=== PATIENT | male | born 1965 | race Caucasian/White ===

== ENCOUNTER 2017-08-01 09:02 | Emergency (ER) | payer OTHER ==
[2017-08-01 10:08] LABS: ADD MAN DIFF? NO
[2017-08-01 10:09] LABS: BASOPHILS % 0.2 % (0.0-2.0); EOSINOPHILS % 0.3 % (0.0-7.0); HEMATOCRIT 47.2 % (42.0-52.0); HEMOGLOBIN 16.9 g/dl (14.0-18.0); LYMPHOCYTES # 1.6 10^3/ul (0.8-2.9); LYMPHOCYTES % 14.4 % (15.0-51.0); MEAN CORPUSCULAR HEMOGLOBIN 31.6 pg (29.0-33.0); MEAN CORPUSCULAR HGB CONC 35.8 g/dl (32.0-37.0); MEAN CORPUSCULAR VOLUME 88.4 fl (82.0-101.0); MEAN PLATELET VOLUME 8.6 fl (7.4-10.4); MONOCYTE # 0.7 10^3/ul (0.3-0.9); MONOCYTES % 6.1 % (0.0-11.0); NEUTROPHIL # 8.9 10^3/ul (1.6-7.5); NEUTROPHILS % 78.6 % (39.0-77.0); PLATELET COUNT 323 10^3/UL (140-415); RED BLOOD COUNT 5.34 10^6/ul (4.70-6.10); RED CELL DISTRIBUTION WIDTH 11.6 % (11.5-14.5)
[2017-08-01 10:09] LABS: WHITE BLOOD COUNT 11.3 10^3/ul (4.8-10.8)
[2017-08-01 10:26] LABS: ANION GAP 21 (8-16); BLOOD UREA NITROGEN 18 mg/dl (7-20); CALCIUM 9.9 mg/dl (8.4-10.2); CARBON DIOXIDE 22 mmol/L (21-31); CHLORIDE 98 mmol/L (97-110); CREATININE 0.95 mg/dl (0.61-1.24); GLUCOSE 140 mg/dl (70-220); POTASSIUM 3.6 mmol/L (3.5-5.1); SODIUM 137 mmol/L (135-144)
[2017-08-01 10:41] LABS: TROPONIN-I < 0.012 ng/ml (0.00-0.12)
== END 2017-08-01 11:13 | disposition home or self-care (01) ==
LOC: FTE 09:02
DX: I10 Essential (primary) hypertension (principal)
CPT/HCPCS: 36415; 71045; 80048; 84484; 85025; 93005; 99285-25

== ENCOUNTER 2017-12-14 14:42 | Emergency (ER) | payer OTHER ==
[2017-12-14] MEDS: LORAZEPAM 2 MG INJ IV (15:01)
[2017-12-14 15:09] LABS: ADD MAN DIFF? NO
[2017-12-14 15:10] LABS: BASOPHILS % 0.1 % (0.0-2.0); EOSINOPHILS % 0.6 % (0.0-7.0); HEMATOCRIT 42.4 % (42.0-52.0); HEMOGLOBIN 15.2 g/dl (14.0-18.0); LYMPHOCYTES # 1.6 10^3/ul (0.8-2.9); LYMPHOCYTES % 23.3 % (15.0-51.0); MEAN CORPUSCULAR HEMOGLOBIN 32.2 pg (29.0-33.0); MEAN CORPUSCULAR HGB CONC 35.8 g/dl (32.0-37.0); MEAN CORPUSCULAR VOLUME 89.8 fl (82.0-101.0); MEAN PLATELET VOLUME 9.1 fl (7.4-10.4); MONOCYTE # 0.7 10^3/ul (0.3-0.9); MONOCYTES % 10.3 % (0.0-11.0); NEUTROPHIL # 4.5 10^3/ul (1.6-7.5); NEUTROPHILS % 65.3 % (39.0-77.0); PLATELET COUNT 260 10^3/UL (140-415); RED BLOOD COUNT 4.72 10^6/ul (4.70-6.10); RED CELL DISTRIBUTION WIDTH 11.6 % (11.5-14.5)
[2017-12-14 15:10] LABS: WHITE BLOOD COUNT 6.9 10^3/ul (4.8-10.8)
[2017-12-14 15:39] LABS: ANION GAP 15 (8-16); BLOOD UREA NITROGEN 23 mg/dl (7-20); CALCIUM 9.1 mg/dl (8.4-10.2); CARBON DIOXIDE 20 mmol/L (21-31); CHLORIDE 105 mmol/L (97-110); CREATININE 0.82 mg/dl (0.61-1.24); GLUCOSE 219 mg/dl (70-220); PHENYTOIN (DILANTIN) 10.3 ug/ml (10.0-20.0); POTASSIUM 3.9 mmol/L (3.5-5.1); SODIUM 136 mmol/L (135-144)
== END 2017-12-14 18:03 | disposition home or self-care (01) ==
LOC: E/R 14:42
DX: R56.9 Unspecified convulsions (principal); R40.2142 Coma scale, eyes open, spontaneous, at arrival to emergency department; R40.2252 Coma scale, best verbal response, oriented, at arrival to emergency department; R40.2362 Coma scale, best motor response, obeys commands, at arrival to emergency department; I10 Essential (primary) hypertension
CPT/HCPCS: 36415; 80048; 80185; 82962; 85025; 96374; 99284-25

== ENCOUNTER 2018-02-07 19:37 | Emergency (ER) | payer OTHER ==
[2018-02-07] MEDS ORDERED: LORAZEPAM 2 MG INJ (19:44)
[2018-02-07] MEDS ORDERED: HALOPERIDOL 5 MG INJ (19:44)
[2018-02-07 19:52] LABS: ADD MAN DIFF? NO
[2018-02-07 19:53] LABS: WHITE BLOOD COUNT 10.5 10^3/ul (4.8-10.8)
[2018-02-07 19:53] LABS: BASOPHILS % 0.3 % (0.0-2.0); EOSINOPHILS # 0.1 10^3/ul (0.0-0.5); EOSINOPHILS % 0.5 % (0.0-7.0); HEMOGLOBIN 14.5 g/dl (14.0-18.0); LYMPHOCYTES # 3.2 10^3/ul (0.8-2.9); LYMPHOCYTES % 30.2 % (15.0-51.0); MEAN CORPUSCULAR HEMOGLOBIN 31.9 pg (29.0-33.0); MEAN CORPUSCULAR HGB CONC 35.4 g/dl (32.0-37.0); MEAN CORPUSCULAR VOLUME 90.1 fl (82.0-101.0); MEAN PLATELET VOLUME 8.6 fl (7.4-10.4); MONOCYTE # 0.7 10^3/ul (0.3-0.9); MONOCYTES % 6.7 % (0.0-11.0); NEUTROPHIL # 6.5 10^3/ul (1.6-7.5); NEUTROPHILS % 61.7 % (39.0-77.0); PLATELET COUNT 309 10^3/UL (140-415); RED BLOOD COUNT 4.55 10^6/ul (4.70-6.10); RED CELL DISTRIBUTION WIDTH 11.5 % (11.5-14.5)
[2018-02-07] MEDS: LORAZEPAM 2 MG INJ IV (19:55)
[2018-02-07] MEDS: HALOPERIDOL 5 MG INJ IM (19:55)
[2018-02-07 20:17] LABS: ANION GAP 25 (8-16); BLOOD UREA NITROGEN 14 mg/dl (7-20); CALCIUM 9.4 mg/dl (8.4-10.2); CARBON DIOXIDE 18 mmol/L (21-31); CHLORIDE 95 mmol/L (97-110); CREATININE 0.92 mg/dl (0.61-1.24); GLUCOSE 191 mg/dl (70-220); POTASSIUM 3.6 mmol/L (3.5-5.1); SODIUM 134 mmol/L (135-144)
[2018-02-07] MEDS ORDERED: FOSPHENYTOIN 100 MG PE/2ML INJ IV (21:00)
[2018-02-07] MEDS: SOD CHLORIDE 0.9% IVPB (21:30)
[2018-02-07] MEDS: FOSPHENYTOIN IVPB (21:30)
== END 2018-02-08 08:30 | disposition home or self-care (01) ==
LOC: E/R 02-08 08:30
DX: R56.9 Unspecified convulsions (principal); R40.2142 Coma scale, eyes open, spontaneous, at arrival to emergency department; R40.2352 Coma scale, best motor response, localizes pain, at arrival to emergency department; R40.2242 Coma scale, best verbal response, confused conversation, at arrival to emergency department; I10 Essential (primary) hypertension
CPT/HCPCS: 36415; 70450; 80048; 80185; 82962; 85025; 96372; 96374; 96375; 99285-25

== ENCOUNTER 2018-04-12 11:26 | Emergency (ER) | payer OTHER ==
[2018-04-12] MEDS: LORAZEPAM 2 MG INJ IV (11:50)
[2018-04-12] MEDS: SOD CHLORIDE 0.9% 500 ML IV (11:55)
[2018-04-12 12:02] LABS: ADD MAN DIFF? NO
[2018-04-12 12:10] LABS: BASOPHILS % 0.3 % (0.0-2.0); EOSINOPHILS % 0.4 % (0.0-7.0); HEMATOCRIT 43.7 % (42.0-52.0); HEMOGLOBIN 15.7 g/dl (14.0-18.0); LYMPHOCYTES # 1.8 10^3/ul (0.8-2.9); LYMPHOCYTES % 19.7 % (15.0-51.0); MEAN CORPUSCULAR HGB CONC 35.9 g/dl (32.0-37.0); MEAN CORPUSCULAR VOLUME 89.2 fl (82.0-101.0); MEAN PLATELET VOLUME 8.9 fl (7.4-10.4); MONOCYTE # 0.7 10^3/ul (0.3-0.9); MONOCYTES % 7.1 % (0.0-11.0); NEUTROPHIL # 6.8 10^3/ul (1.6-7.5); NEUTROPHILS % 72.2 % (39.0-77.0); PLATELET COUNT 335 10^3/UL (140-415); RED CELL DISTRIBUTION WIDTH 11.6 % (11.5-14.5)
[2018-04-12 12:10] LABS: WHITE BLOOD COUNT 9.4 10^3/ul (4.8-10.8)
[2018-04-12 12:22] LABS: ANION GAP 15 (5-13); BLOOD UREA NITROGEN 20 mg/dl (7-20); CALCIUM 10.2 mg/dl (8.4-10.2); CARBON DIOXIDE 19 mmol/L (21-31); CHLORIDE 101 mmol/L (97-110); CREATININE 0.77 mg/dl (0.61-1.24); Estimated GFR > 60 mL/min (>60); GLUCOSE 193 mg/dl (70-220); SODIUM 135 mmol/L (135-144)
== END 2018-04-12 16:20 | disposition home or self-care (01) ==
LOC: E/R 11:26
DX: G40.909 Epilepsy, unspecified, not intractable, without status epilepticus (principal); R40.2142 Coma scale, eyes open, spontaneous, at arrival to emergency department; R40.2362 Coma scale, best motor response, obeys commands, at arrival to emergency department; R40.2252 Coma scale, best verbal response, oriented, at arrival to emergency department; I10 Essential (primary) hypertension; Z95.0 Presence of cardiac pacemaker
CPT/HCPCS: 36415; 80048; 85025; 93005; 96361; 96374; 99284-25

== ENCOUNTER 2018-06-12 09:21 | Emergency (ER) | payer OTHER ==
[2018-06-12] MEDS: SOD CHLORIDE 0.9% 1,000 ML IV (10:10)
[2018-06-12] MEDS: LORAZEPAM 2 MG INJ IV (10:10)
[2018-06-12 10:17] LABS: ADD MAN DIFF? NO
[2018-06-12 10:21] LABS: WHITE BLOOD COUNT 10.4 10^3/ul (4.8-10.8)
[2018-06-12 10:21] LABS: BASOPHILS % 0.2 % (0.0-2.0); EOSINOPHILS % 0.4 % (0.0-7.0); HEMOGLOBIN 14.8 g/dl (14.0-18.0); LYMPHOCYTES # 1.3 10^3/ul (0.8-2.9); LYMPHOCYTES % 12.4 % (15.0-51.0); MEAN CORPUSCULAR HEMOGLOBIN 31.7 pg (29.0-33.0); MEAN CORPUSCULAR HGB CONC 35.2 g/dl (32.0-37.0); MEAN CORPUSCULAR VOLUME 89.9 fl (82.0-101.0); MEAN PLATELET VOLUME 9.4 fl (7.4-10.4); MONOCYTE # 0.7 10^3/ul (0.3-0.9); MONOCYTES % 6.5 % (0.0-11.0); NEUTROPHIL # 8.4 10^3/ul (1.6-7.5); NEUTROPHILS % 80.2 % (39.0-77.0); PLATELET COUNT 289 10^3/UL (140-415); RED BLOOD COUNT 4.67 10^6/ul (4.70-6.10)
[2018-06-12 10:38] LABS: ALANINE AMINOTRANSFERASE 123 IU/L (13-69); ALBUMIN 4.6 g/dl (3.3-4.9); ALBUMIN/GLOBULIN RATIO 1.48; ALKALINE PHOSPHATASE 104 IU/L (42-121); ANION GAP 11 (5-13); ASPARTATE AMINO TRANSFERASE 90 IU/L (15-46); BILIRUBIN,INDIRECT 0.3 mg/dl (0-1.1); BILIRUBIN,TOTAL 0.3 mg/dl (0.2-1.3); BLOOD UREA NITROGEN 16 mg/dl (7-20); CALCIUM 9.7 mg/dl (8.4-10.2); CARBON DIOXIDE 26 mmol/L (21-31); CHLORIDE 100 mmol/L (97-110); Estimated GFR > 60 mL/min (>60); GLUCOSE 167 mg/dl (70-220); POTASSIUM 3.7 mmol/L (3.5-5.1); SODIUM 137 mmol/L (135-144); TOTAL PROTEIN 7.7 g/dl (6.1-8.1)
== END 2018-06-12 12:54 | disposition home or self-care (01) ==
LOC: E/R 09:21
DX: R25.1 Tremor, unspecified (principal); R74.0 Nonspecific elevation of levels of transaminase and lactic acid dehydrogenase [LDH]; G40.909 Epilepsy, unspecified, not intractable, without status epilepticus; I10 Essential (primary) hypertension; E11.9 Type 2 diabetes mellitus without complications; Z95.0 Presence of cardiac pacemaker
CPT/HCPCS: 36415; 80053; 82962; 85025; 96374; 99284-25

== ENCOUNTER 2018-09-11 16:05 | Inpatient (IN) | payer OTHER ==
[2018-09-11] MEDS: LORAZEPAM 2 MG INJ IV ×2 (16:27→18:34)
[2018-09-11 16:56] LABS: ADD MAN DIFF? NO
[2018-09-11 17:00] LABS: WHITE BLOOD COUNT 11.2 10^3/ul (4.8-10.8)
[2018-09-11 17:00] LABS: BASOPHILS % 0.3 % (0.0-2.0); EOSINOPHILS % 0.1 % (0.0-7.0); HEMATOCRIT 45.8 % (42.0-52.0); HEMOGLOBIN 15.9 g/dl (14.0-18.0); LYMPHOCYTES # 1.8 10^3/ul (0.8-2.9); LYMPHOCYTES % 15.8 % (15.0-51.0); MEAN CORPUSCULAR HEMOGLOBIN 30.9 pg (29.0-33.0); MEAN CORPUSCULAR HGB CONC 34.7 g/dl (32.0-37.0); MEAN CORPUSCULAR VOLUME 88.9 fl (82.0-101.0); MEAN PLATELET VOLUME 9.3 fl (7.4-10.4); MONOCYTE # 0.5 10^3/ul (0.3-0.9); MONOCYTES % 4.6 % (0.0-11.0); NEUTROPHIL # 8.8 10^3/ul (1.6-7.5); NEUTROPHILS % 78.7 % (39.0-77.0); PLATELET COUNT 346 10^3/UL (140-415); RED BLOOD COUNT 5.15 10^6/ul (4.70-6.10); RED CELL DISTRIBUTION WIDTH 12.1 % (11.5-14.5)
[2018-09-11 17:21] LABS: ALANINE AMINOTRANSFERASE 36 IU/L (13-69); ALBUMIN 4.9 g/dl (3.3-4.9); ALBUMIN/GLOBULIN RATIO 1.48; ALKALINE PHOSPHATASE 109 IU/L (42-121); ANION GAP 15 (5-13); ASPARTATE AMINO TRANSFERASE 24 IU/L (15-46); BILIRUBIN,INDIRECT 0.6 mg/dl (0-1.1); BILIRUBIN,TOTAL 0.6 mg/dl (0.2-1.3); BLOOD UREA NITROGEN 20 mg/dl (7-20); CALCIUM 9.9 mg/dl (8.4-10.2); CARBON DIOXIDE 19 mmol/L (21-31); CHLORIDE 103 mmol/L (97-110); CREATININE 0.91 mg/dl (0.61-1.24); Estimated GFR > 60 mL/min (>60); GLUCOSE 239 mg/dl (70-220); POTASSIUM 4.1 mmol/L (3.5-5.1); SODIUM 137 mmol/L (135-144); TOTAL PROTEIN 8.2 g/dl (6.1-8.1)
[2018-09-11 17:24] LABS: ACETAMINOPHEN < 10.0 ug/ml (10.0-30.0); ETHANOL < 10.0 mg/dl (0-0); INR 1.04; PROTIME 13.7 Sec (11.9-14.9); PT RATIO 1.1; SALICYLATE < 1.0 mg/dl (5.0-30.0)
[2018-09-11 17:25] LABS: PHENYTOIN (DILANTIN) < 3.0 ug/ml (10.0-20.0)
[2018-09-11 17:25] LABS: PARTIAL THROMBOPLASTIN TIME 23.5 Sec (23.0-35.0)
[2018-09-11] MEDS: PHENYTOIN 1,000 MG in SOD CHLORIDE 0.9% 80 ML IVPB (18:12)
[2018-09-11] MEDS: HALOPERIDOL 5 MG INJ IV (19:52)
[2018-09-11] MEDS: THIAMINE 100 MG in SOD CHLORIDE 0.9% 100 ML IVPB (19:52)
[2018-09-11] MEDS ORDERED: ONDANSETRON 4 MG INJ IV ×2 (20:30→21:00)
[2018-09-11] MEDS ORDERED: ACETAMINOPHEN 325 MG TAB PO (20:30)
[2018-09-11] MEDS ORDERED: NACL 0.9% 3 ML SYG IV (21:00)
[2018-09-11] MEDS ORDERED: NON-FORMULARY/PATIENT OWN MED (Simvastatin* (Zocor*) 20 MG) PO (21:00)
[2018-09-11] MEDS ORDERED: DOCUSATE SODIUM 100 MG CAP PO (21:00)
[2018-09-11] MEDS ORDERED: BISACODYL (EC) 5 MG TAB PO (21:00)
[2018-09-11] MEDS: ATENOLOL 25 MG TAB PO (22:00)
[2018-09-11] MEDS: LEVETIRACETAM 500 MG TAB PO (22:18)
[2018-09-11] MEDS: LACOSAMIDE (100 MG/10 ML PO SYR) PO (22:19)
[2018-09-11] MEDS: ATORVASTATIN 10 MG TAB PO (22:19)
[2018-09-12 05:36] LABS: ADD MAN DIFF? NO
[2018-09-12 05:38] LABS: BASOPHILS % 0.3 % (0.0-2.0); EOSINOPHILS % 0.1 % (0.0-7.0); HEMATOCRIT 44.2 % (42.0-52.0); HEMOGLOBIN 15.2 g/dl (14.0-18.0); LYMPHOCYTES # 2.3 10^3/ul (0.8-2.9); LYMPHOCYTES % 21.8 % (15.0-51.0); MEAN CORPUSCULAR HEMOGLOBIN 31.4 pg (29.0-33.0); MEAN CORPUSCULAR HGB CONC 34.4 g/dl (32.0-37.0); MEAN CORPUSCULAR VOLUME 91.3 fl (82.0-101.0); MEAN PLATELET VOLUME 9.1 fl (7.4-10.4); MONOCYTES % 9.7 % (0.0-11.0); NEUTROPHIL # 7.1 10^3/ul (1.6-7.5); NEUTROPHILS % 67.6 % (39.0-77.0); PLATELET COUNT 292 10^3/UL (140-415); RED BLOOD COUNT 4.84 10^6/ul (4.70-6.10)
[2018-09-12 05:38] LABS: WHITE BLOOD COUNT 10.5 10^3/ul (4.8-10.8)
[2018-09-12 06:20] LABS: ALANINE AMINOTRANSFERASE 30 IU/L (13-69); ALBUMIN 4.7 g/dl (3.3-4.9); ALBUMIN/GLOBULIN RATIO 1.46; ALKALINE PHOSPHATASE 86 IU/L (42-121); ANION GAP 12 (5-13); ASPARTATE AMINO TRANSFERASE 22 IU/L (15-46); BILIRUBIN,INDIRECT 0.7 mg/dl (0-1.1); BILIRUBIN,TOTAL 0.7 mg/dl (0.2-1.3); BLOOD UREA NITROGEN 22 mg/dl (7-20); CALCIUM 9.7 mg/dl (8.4-10.2); CARBON DIOXIDE 26 mmol/L (21-31); CHLORIDE 101 mmol/L (97-110); CHOL/HDL RATIO 3.4 RATIO; CHOLESTEROL 167 mg/dl (100-200); CREATININE 0.82 mg/dl (0.61-1.24); Estimated GFR > 60 mL/min (>60); GLUCOSE 192 mg/dl (70-220); HDL CHOLESTEROL 48 mg/dl (28-71); LDL CHOLESTEROL,CALCULATED 83 mg/dl; MAGNESIUM 2.1 mg/dl (1.7-2.5); POTASSIUM 4.1 mmol/L (3.5-5.1); SODIUM 139 mmol/L (135-144); TOTAL PROTEIN 7.9 g/dl (6.1-8.1); TRIGLYCERIDES 181 mg/dl (0-149)
[2018-09-12 06:41] LABS: THYROID STIMULATING HORMONE 0.774 MIU/L (0.465-4.680)
[2018-09-12 07:42] LABS: HEMOGLOBIN A1C 8.5 % (0-5.9)
[2018-09-12] MEDS: LACOSAMIDE (100 MG/10 ML PO SYR) PO ×2 (08:51→21:56)
[2018-09-12] MEDS: LEVETIRACETAM 500 MG TAB PO ×2 (08:52→20:49)
[2018-09-12] MEDS: BENAZEPRIL 5 MG TAB PO (08:53)
[2018-09-12] MEDS: THIAMINE 200 MG INJ IM (08:57)
[2018-09-12] MEDS: ATENOLOL 25 MG TAB PO (09:33)
[2018-09-12] MEDS: ACETAMINOPHEN 325 MG TAB PO (14:48)
[2018-09-12] MEDS ORDERED: GLUCAGON 1 MG INJ IM (15:30)
[2018-09-12] MEDS ORDERED: GLUCOSE GEL 15 GRAM TUBE PO ×2 (15:30)
[2018-09-12] MEDS ORDERED: GLUCOSE GEL 15 GRAM TUBE BUCCAL (15:30)
[2018-09-12] MEDS ORDERED: DEXTROSE 50% 50 ML SYRINGE IV ×2 (15:30)
[2018-09-12 15:34] LABS: PHOSPHORUS 3.3 mg/dl (2.5-4.9)
[2018-09-12] MEDS ORDERED: HYDROCODONE/APAP (5/325) TAB PO (17:30)
[2018-09-12] MEDS: INSULIN ASPART [NOVOLOG] 3 ML PEN SC ×2 (17:31→20:53)
[2018-09-12] MEDS: ATORVASTATIN 10 MG TAB PO (20:49)
[2018-09-12] MEDS: OXCARBAZEPINE 300 MG TAB PO (20:49)
[2018-09-12] MEDS: INSULIN GLARGINE [LANTus] (100 UNITS/ML) SYG SC (20:54)
[2018-09-13] MEDS: ACCU-CHEK XX ×3 (02:00→21:37)
[2018-09-13 06:09] LABS: ADD MAN DIFF? NO
[2018-09-13 06:13] LABS: WHITE BLOOD COUNT 8.5 10^3/ul (4.8-10.8)
[2018-09-13 06:13] LABS: BASOPHILS % 0.2 % (0.0-2.0); EOSINOPHILS # 0.1 10^3/ul (0.0-0.5); EOSINOPHILS % 0.6 % (0.0-7.0); HEMATOCRIT 45.2 % (42.0-52.0); HEMOGLOBIN 15.4 g/dl (14.0-18.0); LYMPHOCYTES # 2.2 10^3/ul (0.8-2.9); MEAN CORPUSCULAR HGB CONC 34.1 g/dl (32.0-37.0); MEAN CORPUSCULAR VOLUME 90.9 fl (82.0-101.0); MEAN PLATELET VOLUME 9.1 fl (7.4-10.4); MONOCYTE # 0.7 10^3/ul (0.3-0.9); MONOCYTES % 8.4 % (0.0-11.0); NEUTROPHIL # 5.5 10^3/ul (1.6-7.5); NEUTROPHILS % 64.4 % (39.0-77.0); PLATELET COUNT 275 10^3/UL (140-415); RED BLOOD COUNT 4.97 10^6/ul (4.70-6.10); RED CELL DISTRIBUTION WIDTH 11.9 % (11.5-14.5)
[2018-09-13 06:42] LABS: ANION GAP 12 (5-13); BLOOD UREA NITROGEN 24 mg/dl (7-20); CALCIUM 9.5 mg/dl (8.4-10.2); CARBON DIOXIDE 23 mmol/L (21-31); CHLORIDE 103 mmol/L (97-110); CREATININE 0.82 mg/dl (0.61-1.24); Estimated GFR > 60 mL/min (>60); GLUCOSE 186 mg/dl (70-220); MAGNESIUM 2.1 mg/dl (1.7-2.5); POTASSIUM 4.1 mmol/L (3.5-5.1); SODIUM 138 mmol/L (135-144)
[2018-09-13] MEDS: LORAZEPAM 2 MG INJ IV ×2 (07:46→10:14)
[2018-09-13] MEDS: INSULIN ASPART [NOVOLOG] 3 ML PEN SC ×4 (08:15→21:00)
[2018-09-13] MEDS: ENOXAPARIN 40 MG/0.4 ML SYG SC (08:16)
[2018-09-13] MEDS: BENAZEPRIL 5 MG TAB PO (08:18)
[2018-09-13] MEDS: OXCARBAZEPINE 300 MG TAB PO ×2 (08:18→21:37)
[2018-09-13] MEDS: LEVETIRACETAM 500 MG TAB PO ×2 (08:18→21:35)
[2018-09-13] MEDS: LACOSAMIDE (100 MG/10 ML PO SYR) PO ×2 (08:19→21:39)
[2018-09-13] MEDS: ATENOLOL 25 MG TAB PO (08:19)
[2018-09-13] MEDS: THIAMINE 200 MG INJ IM (11:25)
[2018-09-13] MEDS: metFORMIN 500 MG TAB PO ×2 (12:30→17:52)
[2018-09-13] MEDS: SOD CHLORIDE 0.9% 1,000 ML IV ×2 (13:18→22:30)
[2018-09-13] MEDS: INSULIN GLARGINE [LANTus] (100 UNITS/ML) SYG SC (21:35)
[2018-09-13] MEDS: ATORVASTATIN 10 MG TAB PO (21:36)
[2018-09-14] MEDS: ACCU-CHEK XX ×5 (01:06→21:17)
[2018-09-14] MEDS: SOD CHLORIDE 0.9% 1,000 ML IV (02:11)
[2018-09-14 07:15] LABS: ADD MAN DIFF? NO
[2018-09-14 07:26] LABS: BASOPHILS % 0.4 % (0.0-2.0); EOSINOPHILS # 0.1 10^3/ul (0.0-0.5); EOSINOPHILS % 1.2 % (0.0-7.0); HEMATOCRIT 41.6 % (42.0-52.0); HEMOGLOBIN 14.4 g/dl (14.0-18.0); LYMPHOCYTES # 1.9 10^3/ul (0.8-2.9); LYMPHOCYTES % 25.3 % (15.0-51.0); MEAN CORPUSCULAR HEMOGLOBIN 31.3 pg (29.0-33.0); MEAN CORPUSCULAR HGB CONC 34.6 g/dl (32.0-37.0); MEAN CORPUSCULAR VOLUME 90.4 fl (82.0-101.0); MONOCYTE # 0.6 10^3/ul (0.3-0.9); MONOCYTES % 8.1 % (0.0-11.0); NEUTROPHILS % 64.6 % (39.0-77.0); PLATELET COUNT 256 10^3/UL (140-415); RED CELL DISTRIBUTION WIDTH 11.5 % (11.5-14.5)
[2018-09-14 07:26] LABS: WHITE BLOOD COUNT 7.7 10^3/ul (4.8-10.8)
[2018-09-14 07:35] LABS: ADD UMIC NO; UR ASCORBIC ACID NEGATIVE (NEGATIVE); UR BILIRUBIN (Dip) NEGATIVE (NEGATIVE); UR BLOOD (Dip) NEGATIVE (NEGATIVE); UR CLARITY CLEAR (CLEAR); UR COLOR YELLOW (YELLOW); UR GLUCOSE (Dip) NEGATIVE (NEGATIVE); UR KETONES (Dip) NEGATIVE (NEGATIVE); UR LEUKOCYTE ESTERASE (Dip) NEGATIVE Leu/ul (NEGATIVE); UR NITRITE (Dip) NEGATIVE (NEGATIVE); UR SPECIFIC GRAVITY (Dip) 1.011 (1.003-1.030); UR TOTAL PROTEIN (Dip) NEGATIVE (NEGATIVE); UR UROBILINOGEN (Dip) NEGATIVE (NEGATIVE)
[2018-09-14 07:45] LABS: ANION GAP 7 (5-13); BLOOD UREA NITROGEN 15 mg/dl (7-20); CALCIUM 8.9 mg/dl (8.4-10.2); CARBON DIOXIDE 24 mmol/L (21-31); CHLORIDE 105 mmol/L (97-110); CREATININE 0.75 mg/dl (0.61-1.24); Estimated GFR > 60 mL/min (>60); GLUCOSE 140 mg/dl (70-220); POTASSIUM 3.7 mmol/L (3.5-5.1); SODIUM 136 mmol/L (135-144)
[2018-09-14 07:51] LABS: AMPHETAMINE/METHAMPHETAMINE Negative (NEGATIVE); BARBITURATES Negative (NEGATIVE); BENZODIAZEPINES Negative (NEGATIVE); COCAINE Negative (NEGATIVE); OPIATES Negative (NEGATIVE)
[2018-09-14 07:53] LABS: CANNABINOIDS Positive (NEGATIVE)
[2018-09-14] MEDS: INSULIN ASPART [NOVOLOG] 3 ML PEN SC ×4 (08:38→21:00)
[2018-09-14] MEDS: ENOXAPARIN 40 MG/0.4 ML SYG SC (08:39)
[2018-09-14] MEDS: BENAZEPRIL 5 MG TAB PO (08:40)
[2018-09-14] MEDS: LEVETIRACETAM 500 MG TAB PO ×2 (08:40→21:05)
[2018-09-14] MEDS: LACOSAMIDE (100 MG/10 ML PO SYR) PO ×2 (08:40→21:05)
[2018-09-14] MEDS: OXCARBAZEPINE 300 MG TAB PO ×2 (08:40→21:05)
[2018-09-14] MEDS: ATENOLOL 25 MG TAB PO (08:41)
[2018-09-14] MEDS: metFORMIN 500 MG TAB PO ×2 (08:41→17:19)
[2018-09-14] MEDS: THIAMINE 200 MG INJ IM ×2 (09:00→10:14)
[2018-09-14] MEDS: INSULIN GLARGINE [LANTus] (100 UNITS/ML) SYG SC (21:04)
[2018-09-14] MEDS: ATORVASTATIN 10 MG TAB PO (21:05)
[2018-09-15] MEDS: ACCU-CHEK XX ×3 (01:06→11:30)
[2018-09-15 06:51] LABS: ADD MAN DIFF? NO
[2018-09-15 07:00] LABS: BASOPHILS % 0.4 % (0.0-2.0); EOSINOPHILS # 0.1 10^3/ul (0.0-0.5); EOSINOPHILS % 1.7 % (0.0-7.0); HEMATOCRIT 40.8 % (42.0-52.0); HEMOGLOBIN 14.3 g/dl (14.0-18.0); LYMPHOCYTES # 2.2 10^3/ul (0.8-2.9); LYMPHOCYTES % 30.3 % (15.0-51.0); MEAN CORPUSCULAR HEMOGLOBIN 30.8 pg (29.0-33.0); MEAN CORPUSCULAR VOLUME 87.9 fl (82.0-101.0); MEAN PLATELET VOLUME 8.9 fl (7.4-10.4); MONOCYTE # 0.6 10^3/ul (0.3-0.9); MONOCYTES % 8.3 % (0.0-11.0); NEUTROPHIL # 4.2 10^3/ul (1.6-7.5); NEUTROPHILS % 58.9 % (39.0-77.0); PLATELET COUNT 283 10^3/UL (140-415); RED BLOOD COUNT 4.64 10^6/ul (4.70-6.10); RED CELL DISTRIBUTION WIDTH 11.6 % (11.5-14.5)
[2018-09-15 07:00] LABS: WHITE BLOOD COUNT 7.1 10^3/ul (4.8-10.8)
[2018-09-15 07:23] LABS: ANION GAP 12 (5-13); BLOOD UREA NITROGEN 17 mg/dl (7-20); CALCIUM 9.2 mg/dl (8.4-10.2); CARBON DIOXIDE 23 mmol/L (21-31); CHLORIDE 102 mmol/L (97-110); Estimated GFR > 60 mL/min (>60); GLUCOSE 146 mg/dl (70-220); POTASSIUM 3.8 mmol/L (3.5-5.1); SODIUM 137 mmol/L (135-144)
[2018-09-15] MEDS: INSULIN ASPART [NOVOLOG] 3 ML PEN SC ×2 (08:00→11:58)
[2018-09-15] MEDS: ENOXAPARIN 40 MG/0.4 ML SYG SC (08:47)
[2018-09-15] MEDS: LACOSAMIDE (100 MG/10 ML PO SYR) PO (08:47)
[2018-09-15] MEDS: LEVETIRACETAM 500 MG TAB PO (08:48)
[2018-09-15] MEDS: OXCARBAZEPINE 300 MG TAB PO (08:48)
[2018-09-15] MEDS: metFORMIN 500 MG TAB PO (08:48)
[2018-09-15] MEDS: BENAZEPRIL 5 MG TAB PO (08:49)
[2018-09-15] MEDS: ATENOLOL 25 MG TAB PO (08:49)
[2018-09-15] MEDS: LORAZEPAM 2 MG INJ IV (11:51)
[2018-09-16 11:35] LABS: LEVETIRACETAM 44.7 mcg/mL
== END 2018-09-15 15:30 | disposition home or self-care (01) | DRG 101 ==
LOC: E/R 16:05 → 5EC 20:32
DX: G40.909 Epilepsy, unspecified, not intractable, without status epilepticus (principal); E11.8 Type 2 diabetes mellitus with unspecified complications; I25.10 Atherosclerotic heart disease of native coronary artery without angina pectoris; I10 Essential (primary) hypertension; F32.9 Major depressive disorder, single episode, unspecified; I69.398 Other sequelae of cerebral infarction; G93.89 Other specified disorders of brain; R41.3 Other amnesia
CPT/HCPCS: 36415; 70450; 71045; 80048; 80053; 80061; 80177; 80185; 80307; 81003; 82962; 83036; 83735; 84100; 84443; 85025; 85610; 85730; 93005; 95819; 96374; 96375; 99291-25